=== PATIENT | male | born 1990 | race Two or more races ===

== ENCOUNTER 2021-12-27 20:34 | Emergency (ER) | payer OTHER ==
[~2021-12-27] VITALS: Ht 170.2 cm; Wt 74.8 kg
[2021-12-27] MEDS ORDERED: PEPCID AC20 MG (20:44)
[2021-12-27] MEDS ORDERED: PANTOPRAZOLE SO40 M2 (20:44)
== END 2021-12-28 01:54 | disposition home or self-care (01) ==
LOC: ER 20:34
DX: R19.7 Diarrhea, unspecified (principal); Z20.822 Contact with and (suspected) exposure to COVID-19